=== PATIENT | male | born 1970 | race Caucasian/White ===

== ENCOUNTER 2021-09-30 18:57 | Emergency (ER) | payer BC ==
[2021-09-30 19:47] LABS: HEMOGLOBIN 12.1 gm/dl (14.0-17.5); RED BLOOD COUNT 4.08 M/UL (4.20-5.50); WHITE BLOOD COUNT 7.6 K/UL (4.5-11.0)
[2021-09-30 20:09] LABS: BUN/CREATININE RATIO 27 (0-10)
== END 2021-09-30 22:50 | disposition short-term general hospital (02) ==
LOC: ER1 18:57
PROVIDERS: Emergency Medicine
DX: R31.0 Gross hematuria (principal); W19.XXXA Unspecified fall, initial encounter; Y92.009 Unspecified place in unspecified non-institutional (private) residence as the place of occurrence of the external cause
CPT/HCPCS: 71260; 80053; 81001; 82550; 82553; 84484; 85025; 86140; 93005; 96374; 96375; 99285; J2270; J2405; Q9967

== ENCOUNTER 2021-12-06 12:22 | Emergency (ER) | payer BC ==
[2021-12-06 14:03] LABS: HEMOGLOBIN 14.1 gm/dl (14.0-17.5); RED BLOOD COUNT 4.84 M/UL (4.20-5.50); WHITE BLOOD COUNT 7.8 K/UL (4.5-11.0)
[2021-12-06 14:10] LABS: BUN/CREATININE RATIO 20 (0-10)
[2021-12-06] MEDS ORDERED: BENTYL 20MG TAB20 MG PO (21:09)
[2021-12-06] MEDS ORDERED: ZOFRAN ODT 4 MG4 MG PO (21:09)
== END 2021-12-06 21:33 | disposition home or self-care (01) ==
LOC: ER1 12:22
PROVIDERS: Physician Assistant Medical
DX: R10.84 Generalized abdominal pain (principal); R11.2 Nausea with vomiting, unspecified; R10.811 Right upper quadrant abdominal tenderness; Z79.899 Other long term (current) drug therapy; Z87.442 Personal history of urinary calculi; Z98.84 Bariatric surgery status
CPT/HCPCS: 71045; 76705; 80053; 81001; 82550; 82553; 83605; 83690; 84484; 85025; 93005; 96361; 96374; 96375; 96376; 99284; J2270; J2405; J7030; Q9967